=== PATIENT | male | born 1975 | race Caucasian/White ===

== ENCOUNTER 2017-06-17 17:47 | Emergency (ER) | payer SELFPAY ==
[~2017-06-17] VITALS: Ht 182.9 cm; Wt 86.2 kg
[~2017-06-17 17:47] MED LIST: Bactrim Ds Tab1 EACH PO; CEPH500 PO; HIBICLENS120 ML EXT; MUPI2TO TOP; PROC10 PO
[2017-06-17] MEDS ORDERED: Bactrim Ds Tab1 EACH PO (20:02)
[2017-06-17] MEDS ORDERED: Keflex500 MG PO (20:02)
== END 2017-06-17 20:08 | disposition home or self-care (01) ==
LOC: ER 17:47
DX: L03.012 Cellulitis of left finger (principal); Z23 Encounter for immunization; F17.210 Nicotine dependence, cigarettes, uncomplicated; Z86.14 Personal history of Methicillin resistant Staphylococcus aureus infection
CPT/HCPCS: 10060; 73130; 87070; 87075; 87077; 87186; 87205; 90471; 90714; 99283

== ENCOUNTER 2018-09-03 01:11 | Emergency (ER) | payer MEDICAID ==
[~2018-09-03] VITALS: Ht 185.4 cm; Wt 86.2 kg
[~2018-09-03 01:11] MED LIST changes: +Keflex500 MG PO
[2018-09-03] MEDS ORDERED: Bactrim Ds Tab1 EACH PO (02:07)
[2018-09-03] MEDS ORDERED: Mupirocin22 GM TOP (02:07)
[2018-09-03] MEDS ORDERED: CEPH500 PO (02:07)
== END 2018-09-03 02:23 | disposition home or self-care (01) ==
LOC: ER 01:11
DX: L03.114 Cellulitis of left upper limb (principal); Z88.6 Allergy status to analgesic agent; F17.200 Nicotine dependence, unspecified, uncomplicated
CPT/HCPCS: 99283

== ENCOUNTER 2018-12-27 22:09 | Emergency (ER) | payer SELFPAY ==
[~2018-12-27] VITALS: Ht 182.9 cm; Wt 83.9 kg
[~2018-12-27 22:09] MED LIST changes: +Mupirocin22 GM TOP
[2018-12-28] MEDS ORDERED: IBUP600 PO (00:05)
[2018-12-28] MEDS ORDERED: Amoxicillin875 MG PO (00:05)
== END 2018-12-28 00:38 | disposition home or self-care (01) ==
LOC: ER 22:09
DX: J02.0 Streptococcal pharyngitis (principal); G43.909 Migraine, unspecified, not intractable, without status migrainosus; F17.210 Nicotine dependence, cigarettes, uncomplicated
CPT/HCPCS: 96372; 99283; J1100; J1885

== ENCOUNTER 2020-12-18 18:24 | Emergency (ER) | payer SELFPAY ==
[~2020-12-18] VITALS: Ht 182.9 cm; Wt 91.6 kg
[~2020-12-18 18:24] MED LIST changes: +Amoxicillin875 MG PO; +IBUP600 PO
== END 2020-12-19 01:04 | disposition home or self-care (01) ==
LOC: ER 18:24
DX: U07.1 COVID-19 (principal); F17.210 Nicotine dependence, cigarettes, uncomplicated
CPT/HCPCS: 99284; A9270

== ENCOUNTER 2022-12-01 03:01 | Observation (INO) | payer SELFPAY ==
[~2022-12-01] VITALS: Ht 188 cm; Wt 91.5 kg
[2022-12-01 03:21] LABS: BASOPHILS ABSOLUTE AUTO 0.04 K/mm3 (0.00-0.23); BASOPHILS PERCENT AUTO 0 % (0-2); EOSINOPHILS ABSOLUTE AUTO 0.15 K/mm3 (0.00-0.68); EOSINOPHILS PERCENT AUTO 2 % (0-6); Hematocrit 37.3 % (37.0-53.0); Hemoglobin 12.4 g/dL (13.5-17.5); IMMATURE GRAN ABSOLUTE AUTO 0.02 K/mm3 (0.00-0.10); IMMATURE GRAN PERCENT AUTO 0 % (0-1); LYMPHOCYTES ABSOLUTE AUTO 2.66 K/mm3 (0.84-5.20); LYMPHOCYTES PERCENT AUTO 26 % (21-46); MONOCYTES ABSOLUTE AUTO 0.98 K/mm3 (0.16-1.47); MONOCYTES PERCENT AUTO 10 % (4-13); Mean Corpuscular HGB 29.7 pg (26.0-34.0); Mean Corpuscular HGB Conc 33.2 g/dL (31.5-36.5); Mean Corpuscular Volume 89 fL (80-100); Mean Platelet Volume 8.8 fL (9.1-12.4); NEUTROPHILS ABSOLUTE AUTO 6.37 K/mm3 (1.96-9.15); NEUTROPHILS PERCENT AUTO 62 % (41-73); Platelet Count 229 K/mm3 (150-400); RDW Coefficient Variation 13.3 % (11.7-14.2); Red Blood Cell Count 4.17 M/mm3 (4.30-5.90); White Blood Cell Count 10.22 K/mm3 (4.00-11.30)
[2022-12-01 03:41] LABS: Albumin, Blood 3.5 g/dL (3.4-5.0); Albumin/Globulin Ratio 0.9 (0.8-1.8); Bilirubin, Total 0.9 mg/dL (0.1-1.0); Bun/Creatinine Ratio 10.1 (12.0-20.0); Creatinine, Blood 1.19 mg/dL (0.60-1.20); Potassium, Blood 3.9 mmol/L (3.5-5.5); Total Protein, Blood 7.5 g/dL (6.4-8.2)
[2022-12-01 05:14] LABS: Anti-Xa UFH, PHA Monitoring <0.10 IU/mL; International Normalized Ratio 1.03; Prothrombin Time Results 10.8 Sec (9.7-11.5)
[2022-12-01 09:02] VITALS: BP 110/73
--- NOTE | 2022-12-01 16:44 | NUR ---
SHIFT SUMMARY PATIENT IS ALERT AND ORIENTED. PATIENT WAS ADMITTED FOR A PE THIS MORNING. PATIENT HAS REPORTED PAIN AND MEDICATED PER EMAR. PATIENT HAS NOT COMPLAINED OF SOB, NAUSEA, OR VOMITTING THIS SHIFT. ECHO WAS DONE AND RESULTS PENDING. BED IN LOCKED AND LOWEST POSITION. CALL LIGHT IN PLACE. WILL MONITOR UNTIL SHIFT CHANGE.
[2022-12-01 16:48] VITALS: BP 116/76
[2022-12-01 16:49] VITALS: BP 116/76
[2022-12-01 20:24] VITALS: BP 127/74
[2022-12-02 02:30] VITALS: BP 121/91
--- NOTE | 2022-12-02 06:48 | NUR ---
Shift Summary Pt c/o of chest pain which he said now feels as if it is coming from his back. Pt states he felt this exact pain before 6 months ago. Pt medicated per emar for pain. He c/o of 7-8/10 pain every few hours but was able to sleep well t/o most of the night with current medication regemen. Pain is worse when pt takes a deep breath or moves around much.
[2022-12-02 07:05] LABS: Hematocrit 38.2 % (37.0-53.0); Hemoglobin 12.7 g/dL (13.5-17.5); Mean Corpuscular HGB 29.5 pg (26.0-34.0); Mean Corpuscular HGB Conc 33.2 g/dL (31.5-36.5); Mean Corpuscular Volume 89 fL (80-100); Mean Platelet Volume 8.7 fL (9.1-12.4); Platelet Count 209 K/mm3 (150-400); RDW Coefficient Variation 13.2 % (11.7-14.2); RDW Standard Deviation 43.2 fL (35.1-46.3); White Blood Cell Count 8.49 K/mm3 (4.00-11.30)
[2022-12-02 07:26] LABS: Bun/Creatinine Ratio 12.6 (12.0-20.0); Calcium, Blood 8.7 mg/dL (8.5-10.1); Creatinine, Blood 1.03 mg/dL (0.60-1.20)
--- NOTE | 2022-12-02 08:14 | NUR ---
Received report from Alejandro MCCORD noc shift RN. Patient was resting comfortably. Received Dilaudid for pain at 0636. Patient roused easily to verbal stimuli. Still has heparin drip at 15units per kg per hour. Report to Taran MCCORD who will assume care and comfort of this patient.
[2022-12-02 08:33] VITALS: BP 115/79
[2022-12-02] MEDS ORDERED: DOCU100 PO (15:56)
[2022-12-02] MEDS ORDERED: ACET325 PO (15:56)
[2022-12-02] MEDS ORDERED: MIRALAX1714 PO (15:56)
[2022-12-02] MEDS ORDERED: XARELTO10 M2 PO (15:57)
[2022-12-02] MEDS ORDERED: XARELTO20 MG PO (15:58)
--- NOTE | 2022-12-02 16:39 | NUR ---
PT HAD DC ORDERS- RN HAD TAKEN PT OFF OF OXYGEN AT 1000 AND AT 1100 SATS 88% ON ROOM AIR, PT HAD BEEN RESTING QUIET IN BED WITH THIS CHECK. REPLACED OXYGEN AT THIS TIME. HOME O2 EVAL COMPLETED, SEE RESULTS. PT'S SATS 93% ON ROOM AIR WITH ACTIVITY. THE PROBLEM WAS THAT PT BECAME EXHAUSTED 1/2 WAY THROUGH THE 100F WALK AND COULDN'T WALK BACK WITHOUT THE AID OF LEANING FULLY ON HIS WIFES SHOULDER. SHALLOW BREATHING AND EYES PARTIALLY CLOSED, FEELING WEAK AND LIKE HE IS "FLOATING IN A CLOUD" - STATES HE FEELS HE NEEDS TO CLEAR HIS THROAT BUT IS TOO PAINFUL TO TAKE A DEEP BREATH. PT IS FEARFUL ABOUT GOING HOME AND WISHES TO STAY IN THE HOSPITAL ANOTHER NIGHT. CALLED DR MONTGOMERY AND IS IN AGREEMENT TO MONITOR PT ANOTHER NIGHT AND RE-EVAL IN AM.
[2022-12-02 16:53] VITALS: BP 127/75
--- NOTE | 2022-12-02 18:34 | NUR ---
SUMMARY- PT A/O X4, SBA TO BATHROOM. BECOMES EXHAUSTED EASILY. PAINFUL INSPIRATIONS. DISCHARGE DEFERRED FOR ANOTHER NIGHT RELATED TO PT'S DYSPNEA WITH ACTIVITY AND HIS FEERS OF GOING HOME, WANTS TO STAY ANOTHER NIGHT. DR MONTGOMERY OK'D DC REEVAL IN AM. PT'S PAIN CONTROLLED WITH ORAL DILAUDID. INC I.S.USE UP TO 1999. PAIN AFTER DILAUDID DOWN TO 4/10 FROM 11/21. TOLERATING FOOD AND FLUIDS. GOT UP AND SHOWERED THIS AFTERNOON. IN AND OUT ALL DAY, SUPPORTIVE IN CARE
[2022-12-02 19:55] VITALS: BP 133/75
[2022-12-03 04:18] LABS: Hematocrit 38.5 % (37.0-53.0); Hemoglobin 12.8 g/dL (13.5-17.5); Mean Platelet Volume 8.7 fL (9.1-12.4); Platelet Count 230 K/mm3 (150-400)
[2022-12-03 04:55] VITALS: BP 121/82
--- NOTE | 2022-12-03 05:30 | NUR ---
Shift Summary No c/o of pain t/o most of the night. Woke up this AM around 0500 with 8/10 chest pain, gave PO dilauded per EMAR. Pt SoB on exertions and somnolent t/o the shift. Plan is to D/C home today with Rx for anticoagulation and pain control.
[2022-12-03 08:17] VITALS: BP 113/66
--- NOTE | 2022-12-03 09:00 | NUR ---
pt laying in bed with eyes closed, wakes easily, seems to have a flat affect, a/ox4, cooperative with care, follows commands well, reports pain in his chest asking for pain meds, will medicate when time allows, lungs are clear in upper garcia, dim in rll, no cough noted, hrr, no edema noted, ppp+2, cap refill <3sec, vs stable, afebrile, piv site to lac, site is clear and patent, btx4, abd flat soft nontender, voids without diff, skin c/w/d, maew, isa, call light in reach.
--- NOTE | 2022-12-03 09:48 | NUR ---
pt will be going home today, he is aware.
--- NOTE | 2022-12-03 10:12 | NUR ---
pt has been discharged per Dr. Meneses, went over instructions with him, he verbalized understanding, faxed new meds to [facility], iv removed intact, left via wheelchair with concrete mixer operator in attendence with all his belongings, script for dilaudid is in his discharge envelope and he is aware.
[2022-12-07 07:14] LABS: ACT. PRT C RESIST W/FV DEFIC. 2.6 ratio (.); APTT 71.3 sec (.); DRVVT CONFIRM SECONDS 43.2 sec (.); DRVVT RATIO 1.2 ratio (.); FACTOR VIII ACTIVITY 117 % (.); HEXAGONAL PHOSPHOLIPID NEUTRAL 9 sec (.); HOMOCYSTEINE <3.0 umol/L (.); PRT C ACTIVITY (CHROMOGENIC) 109 % (.)
== END 2022-12-03 10:10 | disposition home or self-care (01) ==
LOC: ER 03:01 → MEDS 03:02 → ENPENDDIS 12-02 15:11 → MEDS 12-03 10:10
PROVIDERS: Emergency Medicine; Internal Medicine; ADMIT Internal Medicine
DX: I26.99 Other pulmonary embolism without acute cor pulmonale (principal); F17.290 Nicotine dependence, other tobacco product, uncomplicated; Z88.6 Allergy status to analgesic agent; D64.9 Anemia, unspecified
CPT/HCPCS: 36415; 71045; 71260; 80048; 80053; 81240; 83090; 83880; 84484; 85014; 85018; 85025; 85027; 85049; 85240; 85300; 85303; 85306; 85307; 85379; 85520; 85610; 85613; 85730; 85732; 86146; 86147; 93005; 93010; 93306; 94761; 96365-59; 96366-59; 96375; 96375-59; 96376; 96376-59; 99285-25; A9270; G0378; J1170; J1644; J1885; J2270; J2405; Q9967